=== PATIENT | male | born 1960 | race Caucasian/White ===

== ENCOUNTER 2020-03-29 15:51 | Emergency (ER) | payer MEDICAID ==
[~2020-03-29] VITALS: Ht 170.2 cm; Wt 73.0 kg
[2020-03-29 16:04] VITALS: Ht 170.2 cm; Wt 73.0 kg
[2020-03-29 16:51] VITALS: BP 122/110
[2020-03-29 17:11] LABS: AMPHETAMINE QUAL UR POSITIVE (See below)
[2020-03-29 17:46] LABS: BASOPHIL % 0.7 % (0-2); PLATELET COUNT 231 x10^3mcL (130-400)
[2020-03-29 17:48] LABS: RED CELL DISTRIBUTION WIDTH 14.8 % (11.5-14.5)
[2020-03-29 18:01] LABS: CALCIUM 8.7 mg/dL (8.5-10.1); CARBON DIOXIDE 21.5 mmol/L (21-32); CHLORIDE SERUM 105 mmol/L (98-107); CREATININE SERUM 1.2 mg/dL (0.7-1.3); GFR1 > 60 mL/min; GLUCOSE SERUM 93 mg/dL (74-106); POTASSIUM SERUM 3.6 mmol/L (3.5-5.1); SODIUM SERUM 139 mmol/L (136-145)
[2020-03-29 18:08] LABS: ALBUMIN 3.6 g/dL (3.4-5.0); ALKALINE PHOSPHATASE 79 U/L (46-116); ALT/SGPT 30 U/L (16-63); AST/SGOT 16 U/L (15-37); BILIRUBIN TOTAL 0.39 mg/dL (0.20-1.00); CHOLESTEROL 176 mg/dL (<200); TOTAL PROTEIN, SERUM 6.7 g/dL (6.4-8.2)
== END 2020-03-29 17:53 | disposition left against medical advice (07) ==
LOC: ED 15:51
PROVIDERS: Specialist
DX: F23 Brief psychotic disorder (principal); F41.9 Anxiety disorder, unspecified
CPT/HCPCS: 99406; G0480; J1630; J7030; Q0092

== ENCOUNTER 2020-03-29 18:59 | Emergency (ER) | payer MEDICAID ==
[~2020-03-29] VITALS: Ht 172.7 cm; Wt 77.1 kg
[2020-03-29 19:00] VITALS: Ht 172.7 cm; Wt 77.1 kg
[2020-03-29 21:50] VITALS: BP 119/86
== END 2020-03-29 21:50 | disposition home or self-care (01) ==
LOC: ED 18:59
DX: F15.10 Other stimulant abuse, uncomplicated (principal)